=== PATIENT | female | born 1945 | race Caucasian/White ===

== ENCOUNTER → 2018-08-18 | Outpatient (CLI) | payer MEDICARE ==
[~2018-08-18] MED LIST: BETH10TA
== END ==
LOC: CARD 14:51
PROVIDERS: ATTEND Internal Medicine Interventional Cardiology
DX: I10 Essential (primary) hypertension (principal); R07.9 Chest pain, unspecified; I45.10 Unspecified right bundle-branch block
CPT/HCPCS: 93017

== ENCOUNTER → 2018-08-25 | Outpatient (CLI) | payer MEDICARE | LOC: CARD 09:18 | PROVIDERS: ATTEND Internal Medicine Interventional Cardiology | DX: R07.9 Chest pain, unspecified (principal); E78.5 Hyperlipidemia, unspecified; I10 Essential (primary) hypertension | CPT/HCPCS: 93306 ==

== ENCOUNTER 2019-04-07 18:03 | Emergency (ER) | payer MEDICARE ==
[~2019-04-07] VITALS: Ht 167 cm; Wt 69.0 kg
[2019-04-07] MEDS: BSS 15 ML IR ONE ×2 (18:20→18:34)
[2019-04-07] MEDS ORDERED: TETRACAINE 0.5% OPHTH SOLN 4 ML BTL (SINGLE DOSE ONLY) OU ONE (18:30)
[2019-04-07] MEDS ORDERED: FLUORESCEIN (FLUOR-I-STRIPS) 1 MG STRP OU ONE (18:30)
[2019-04-07] MEDS ORDERED: AMLO10TA7 PO (18:43)
[2019-04-07] MEDS ORDERED: CIPR-225 PO (18:43)
[2019-04-07] MEDS ORDERED: PHEN-483 PO (18:43)
[2019-04-07] MEDS ORDERED: NF-ESOM40C PO (18:43)
[2019-04-07] MEDS ORDERED: TETANUS,DIPTH,PERTUSS P/F (BOOSTRIX) 0.5 ML VIAL IM ONE (18:45)
[2019-04-07] MEDS ORDERED: CIPR2.5D2 OP (18:45)
[2019-04-07] MEDS ORDERED: ACHD5005 PO (18:45)
--- NOTE | 2019-04-07 18:45 | ED EENT ---
History of Present Illness General Chief Complaint: Eye Problems Stated Complaint: SCRATCHED R EYE WITH SCISSORS Nursing Triage Note: PT AMBULATED TO ROOM 3 PT STATES SCRATCHED R EYE W SCISSORS APPROX 30 MIN PRIOR TO ARRIVAL. PT STATES HURTS WHEN BLINKS RATES DISCOMFORT 6/10. PT HAS BLURRED VISION IN R EYE Source: patient History of Present Illness Date Seen by Provider: Apr 07, 2019 Time Seen by Provider: 18:25 Initial Comments PT ARRIVES VIA POV FROM HOME C/O INJURY TO RIGHT EYE--OCCURRED 30 MINUTES PRIOR TO ARRIVAL STATES SHE WAS TRIMMING HER BANGS, AND ACCIDENTALLY POKED HERSELF IN THE RIGHT EYE WITH THE SCISSORS C/O BLURRY VISION IN RIGHT EYE C/O PAIN EVERY TIME SHE BLINKS PT NORMALLY WEARS GLASSES NO PRIOR INJURY OR OTHER PROBLEMS WITH EYE LAST TETANUS SHOT IS UNKNOWN PCP: DR. REYES MANAGER CODING: DR. CASTELLANOS Allergies and Home Medications Allergies Coded Allergies: Sulfa (Sulfonamide Antibiotics) (Verified Allergy, Unknown, 12/08/15) Home Medications Amlodipine Besylate 10 Mg Tablet, Unknown Dose PO DAILY, (Reported) Ciprofloxacin HCl 2.5 Ml Drops, 2.5 ML OP UD 2 DROPS TO AFFECTED EYE EVERY 2 HOURS WHILE AWAKE FOR FIRST 2 DAYS, THEN Q 4 HOURS WHILE AWAKE FOR A TOTAL OF 7 DAYS Prescribed by: SYL MARTINEZ on 04/07/191844 Hydrocodone Bit/Acetaminophen 1 Tab Tab, 1 EACH PO Q4H PRN for PAIN-MODERATE Prescribed by: SYL MARTINEZ on 04/07/191844 Patient Home Medication List Home Medication List Reviewed: Yes Review of Systems Review of Systems Constitutional: no symptoms reported Eyes: See HPI Other CURRENTLY ON ANTIBIOTIC, CIPRO, FOR UTI Past Hbemtjc-Fvasag-Bimtyp Hx Patient Social History Alcohol Use: Occasionally Uses Recreational Drug Use: No Smoking Status: Never a Smoker Recent Foreign Travel: No Contact w/Someone Who Travel: No Recent Infectious Disease Expo: No Recent Hopitalizations: No Immunizations Up To Date Tetanus Booster (TDap): Unknown Seasonal Allergies Seasonal Allergies: Yes Past Medical History Tonsillectomy, Tubal Ligation Respiratory: No Cardiac: Yes Hypertension Neurological: No Reproductive Disorders: No Genitourinary: Yes Bladder Infection Gastrointestinal: No Musculoskeletal: No Endocrine: No HEENT: Yes (GLASSES) Cancer: No Psychosocial: No Physical Exam Vital Signs Vital Signs - First Documented 04/07/19 18:15 Temp 36.1 Pulse 85 Resp 18 B/P (MAP) 151/99 (116) Pulse Ox 96 Height, Weight, BMI Height: 5'6" Weight: 166lbs. oz. 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, no motor/sensory deficits, alert, normal mood/affect, oriented x 3 Skin: normal color, warm/dry Procedures/Interventions Eye : Location: right eye Anesthesia (gtts): Tetracaine Progress/Procedure Conclusion TETRACAINE +FLUORESCEIN INSTILLED IN RIGHT EYE + DYE UPTAKE IN UPSIDE DOWN V-SHAPE TO RIGHT CENTER OF CORNEA GLOBE IS INTACT Progress/Results/Core Measures Results/Orders My Orders Orders - SYL MARTINEZ DO Tetracaine 0.5% Ophth Ana Sdv (Tetracai (04/07/19 18:30) Fluorescein Strips (Geeuo-Y-Qlgjfr) (04/07/19 18:30) Balanced Salt Irrigation Soln (Bss Irrig (04/07/19 18:30) Dipht,Pertuss(Acell),Tet Adult (Boostrix (04/07/19 18:45) Medications Given in ED Current Medications Medications Dose Ordered Sig/Samm Route Start Time Stop Time Status Last Admin Dose Admin Balanced Salt Solution 15 ml ONCE ONCE IR 04/07/19 18:30 04/07/19 18:31 DC 04/07/19 18:34 15 ML Fluorescein Sodium 1 mg ONCE ONCE OU 04/07/19 18:30 04/07/19 18:31 DC 04/07/19 18:34 1 MG Tetracaine HCl 4 ml ONCE ONCE OU 04/07/19 18:30 04/07/19 18:31 DC 04/07/19 18:34 4 ML Vital Signs/I&O 04/07/19 18:15 Temp 36.1 Pulse 85 Resp 18 B/P (MAP) 151/99 (116) Pulse Ox 96 Blood Pressure Mean: 116 Departure Impression Primary Impression: Corneal abrasion Additional Impression: Lzqpbcdjhb-maelaqcgu-xmbwxje (DPT) vaccination administered at current visit Disposition: 01 HOME, SELF-CARE Condition: Stable Departure-Patient Inst. Referrals: REDDY REYES DO (PCP/Family) Primary Care Physician Patient Instructions: Corneal Abrasion (DC), Diphtheria and Tetanus Toxoids, and Acellular Pertussis Vaccine Add. Discharge Instructions: DO NOT RUB EYE TYLENOL AND MOTRIN NEEDED FOR PAIN USE EYE DROPS PRESCRIBED RETURN TO ER TOMORROW TO RECHECK YOUR EYE FOLLOW UP WITH YOUR EYE DR ON WEDNESDAY All discharge instructions reviewed with patient and/or family. Voiced understanding. Scripts Hydrocodone Bit/Acetaminophen (Hydrocodone/Acetaminophen 5/325mg Tablet) 1 Tab Tab 1 EACH PO Q4H PRN for PAIN-MODERATE MDD 10 for 3 Days, #10 TAB Prov: SYL MARTINEZ DO 04/07/19 Ciprofloxacin HCl (Ciprofloxacin HCl) 2.5 Ml Drops 2.5 ML OP UD for 7 Days, #1 DROPS 2 DROPS TO AFFECTED EYE EVERY 2 HOURS WHILE AWAKE FOR FIRST 2 DAYS, THEN Q 4 HOURS WHILE AWAKE FOR A TOTAL OF 7 DAYS Prov: SYL MARTINEZ DO 04/07/19 Images Eye 1 - Abrasion, Dye uptake (fluorescein) 2 - Abrasion, Dye uptake (fluorescein) SYL MARTINEZ DO Apr 07, 2019 18:45
[2019-04-07 18:52] VITALS: BP 151/99
== END 2019-04-07 18:52 | disposition home or self-care (01) ==
LOC: EDUNIT# 18:03 → ER 18:04
DX: S05.01XA Injury of conjunctiva and corneal abrasion without foreign body, right eye, initial encounter (principal); I10 Essential (primary) hypertension; Z23 Encounter for immunization; Z88.2 Allergy status to sulfonamides; Z90.89 Acquired absence of other organs; Z98.51 Tubal ligation status; W27.2XXA Contact with scissors, initial encounter
CPT/HCPCS: 90471; 90715; 99284

== ENCOUNTER 2019-04-08 11:26 | Emergency (ER) | payer MEDICARE ==
[~2019-04-08] VITALS: Ht 167 cm; Wt 69.0 kg
[~2019-04-08 11:26] MED LIST changes: +ACHD5005 PO; +AMLO10TA7 PO; +CIPR-225 PO; +CIPR2.5D2 OP; +NF-ESOM40C PO; +PHEN-483 PO
[2019-04-08 12:08] VITALS: BP 149/97
--- NOTE | 2019-04-08 12:13 | ED Suture Removal/Wound Check ---
Suture/Wound Re-check Suture Removal/Wound Recheck : Progress Patient presented yesterday for having accidentally stabbed her lateral left cornea with a pair of scissors. At the time she had a corneal V shape tear. Today her pain is less the blurriness is gone out of her vision and she sees much better back to baseline. General Appearance: WD/WN, no apparent distress Skin Exam: normal color, warm/dry Physical Exam Vital Signs Vital Signs - First Documented 04/08/19 11:52 Temp 36.4 Pulse 78 Resp 17 B/P (MAP) 149/97 Pulse Ox 100 O2 Delivery Room Air Capillary Refill : General Appearance: WD/WN, no apparent distress HEENT: PERRL/EOMI, other (faint right lateral ecchymoses of the cornea without erythema injection or hemorrhage. 20/25 corrected bilateral and ipsilateral eye) Cardiovascular: normal peripheral pulses, regular rate, rhythm Departure Impression Primary Impression: Corneal abrasion Qualified Codes: S05.01XD - Injury of conjunctiva and corneal abrasion without foreign body, right eye, subsequent encounter Disposition: 01 HOME, SELF-CARE Condition: Improved Departure-Patient Inst. Decision time for Depature: 12:07 Referrals: REDDY REYES DO (PCP) Primary Care Physician Patient Instructions: Corneal Abrasion (DC) Add. Discharge Instructions: Set up a follow-up appointment with Dr. Mckenzie, Optometry. All discharge instructions reviewed with patient and/or family. Voiced understanding. THELMA SANCHEZ Apr 08, 2019 12:13
== END 2019-04-08 12:09 | disposition home or self-care (01) ==
LOC: EDUNIT# 11:26 → ER 11:27
DX: S05.01XD Injury of conjunctiva and corneal abrasion without foreign body, right eye, subsequent encounter (principal); W27.2XXD Contact with scissors, subsequent encounter

== ENCOUNTER 2021-07-01 07:52 | Emergency (ER) | payer MEDICARE ==
[~2021-07-01] VITALS: Ht 167.7 cm; Wt 77.1 kg
[~2021-07-01 07:52] MED LIST changes: +AMLO-251 PO; -AMLO10TA7 PO; -CIPR2.5D2 OP; +CIPR2.5D3 OP
[2021-07-01 07:54] VITALS: BP 143/80
[2021-07-01 08:21] LABS: BASOPHILS # (AUTO) 0.1 10^3/uL (0.0-0.1); BASOPHILS % (AUTO) 0 % (0-10); EOSINOPHILS # (AUTO) 0.2 10^3/uL (0.0-0.3); EOSINOPHILS % (AUTO) 2 % (0-10); HEMATOCRIT 42 % (35-52); HEMOGLOBIN 13.6 g/dL (11.5-16.0); LYMPHOCYTES # (AUTO) 1.8 10^3/uL (1.0-4.0); LYMPHOCYTES % (AUTO) 16 % (12-44); MEAN CORPUSCULAR HEMOGLOBIN 30 pg (25-34); MEAN CORPUSCULAR HGB CONC 33 g/dL (32-36); MEAN CORPUSCULAR VOLUME 91 fL (80-99); MEAN PLATELET VOLUME 9.9 fL (9.0-12.2); MONOCYTES # (AUTO) 0.9 10^3/uL (0.0-1.0); MONOCYTES % (AUTO) 8 % (0-12); NEUTROPHILS # (AUTO) 8.4 10^3/uL (1.8-7.8); NEUTROPHILS % (AUTO) 74 % (42-75); PLATELET COUNT 377 10^3/uL (130-400); WHITE BLOOD COUNT 11.4 10^3/uL (4.3-11.0)
[2021-07-01 08:27] LABS: ALBUMIN 4.4 GM/DL (3.2-4.5); POTASSIUM 3.9 MMOL/L (3.6-5.0)
[2021-07-01 08:30] LABS: INR 0.9 (0.8-1.4); PROTHROMBIN TIME PATIENT 12.3 SEC (12.2-14.7)
[2021-07-01] MEDS ORDERED: ASPIRIN 81 MG CHEW (CHILDREN'S ASA) PO ONE (08:30)
[2021-07-01 08:31] LABS: BILIRUBIN,TOTAL 0.6 MG/DL (0.1-1.0)
[2021-07-01 08:33] LABS: CREATININE SERUM 0.76 MG/DL (0.60-1.30)
[2021-07-01 08:36] LABS: MAGNESIUM 1.6 MG/DL (1.6-2.4)
--- NOTE | 2021-07-01 09:31 | Diagnostic Imaging Report ---
Indication: Chest pain Frontal chest obtained at 0931 a.m. There is no prior study for comparison Heart and mediastinal silhouette are normal in appearance. There is no pneumothorax or pleural fluid. There is some vague infiltrate in the right perihilar region, suspect early pneumonia. There is hyperinflation compatible with COPD. IMPRESSION: Hyperinflation compatible with COPD. There is some vague infiltrate in the right perihilar region which may represent early pneumonia. Follow-up is recommended. Dictated by: Dictated on workstation # [id number]
--- NOTE | 2021-07-01 11:34 | ED Chest Pain ---
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 PT REPORTS PAIN INFERIOR TO AXILARY. PT STATES THAT PAIN WILL LAST FOR A FEW SECONDS AND THEN STOP. Source: patient Exam Limitations: no limitations History of Present Illness Date Seen by Provider: Jul 01, 2021 Time Seen by Provider: 08:14 Initial Comments This 76-year-old woman presents to the emergency room with chest pain that started about 2 hours prior to arrival to the ER. She was in bed when the pain started. She describes it as a waxing and waning or intermittent left lateral chest pain. It is not affected by movement, deep breathing, or exertion. She has had episodes of GERD in the past but states this is a different sensation. She reports her pain varies from 2-5 over 10. She denies any associated symptoms such as nausea, lightheadedness, cough, shortness of breath, etc. She has been experiencing diaphoresis at night for over a year without explanation. She admits to drinking 2-3 beers or glasses of wine every night. Allergies and Home Medications Allergies Coded Allergies: Sulfa (Sulfonamide Antibiotics) (Verified Allergy, Unknown, 12/08/15) Patient Home Medication List Home Medication List Reviewed: Yes Amlodipine Besylate (Amlodipine Besylate) 10 Mg Tablet, Unknown Dose PO DAILY, (Reported) Entered as Reported by: JACINTO SAENZ on 04/07/191842 Ciprofloxacin HCl (Cipro) 500 Mg Tablet, Unknown Dose PO, (Reported) Entered as Reported by: JACINTO SAENZ on 04/07/191842 Ciprofloxacin HCl (Ciprofloxacin HCl) 2.5 Ml Drops, 2.5 ML OP UD Prescribed by: SYL MARTINEZ on 04/07/191844 Esomeprazole Magnesium (Nexium) 40 Mg Cap, Unknown Dose PO, (Reported) Entered as Reported by: JACINTO SAENZ on 04/07/191842 Hydrocodone Bit/Acetaminophen (Lortab 5 Mg Tablet) 1 Tab Tab, 1 EACH PO Q4H PRN for PAIN-MODERATE Prescribed by: SYL MARTINEZ on 04/07/191844 Phentermine HCl (Phentermine HCl) 37.5 Mg Capsule, Unknown Dose PO, (Reported) Entered as Reported by: JACINTO SAENZ on 04/07/191842 Review of Systems Review of Systems Constitutional: see HPI EENTM: No Symptoms Reported Respiratory: No Symptoms Reported Cardiovascular: See HPI Gastrointestinal: No Symptoms Reported Genitourinary: No Symptoms Reported Musculoskeletal: no symptoms reported Skin: no symptoms reported Psychiatric/Neurological: No Symptoms Reported Endocrine: No Symptoms Reported Hematologic/Lymphatic: No Symptoms Reported Past Jifmsna-Sznaul-Equvzw Hx Patient Social History Tobacco Use?: No Smoking Status: Former Smoker Smokeless Tobacco Frequency: Never a User Use of E-Cig and/or Vaping dev: No Use of E-Cig and/or Vaping Jean-Pierre: Never a User Substance use?: No Alcohol Use?: Yes Alcohol Frequency: Daily Pt feels they are or have been: No Immunizations Up To Date Tetanus Booster (TDap): Unknown First/Initial COVID19 Vaccinat: UNKNOWN DATE Second COVID19 Vaccination Jed: UNKNOWN DATE COVID19 Vaccine Audio Visual Production Specialist: FatsomaOlman Seasonal Allergies Seasonal Allergies: Yes Past Medical History Surgeries: Yes (Rhinoplasty) Tonsillectomy, Tubal Ligation Respiratory: Yes (COVID-15 June 2020) Cardiac: Yes High Cholesterol, Hypertension Neurological: No Reproductive Disorders: No Genitourinary: Yes Bladder Infection Gastrointestinal: No Musculoskeletal: No Endocrine: No HEENT: Yes (GLASSES) Cancer: No Psychosocial: No Physical Exam Vital Signs Vital Signs - First Documented 07/01/21 07:54 Temp 37.3 Pulse 89 Resp 17 B/P (MAP) 143/80 (101) O2 Delivery Room Air Capillary Refill : Less Than 3 Seconds Height, Weight, BMI Height: 5'6" Weight: 166lbs. oz. 75.968622pj; 27.00 BMI Method:Actual General Appearance: No Apparent Distress, WD/WN, Thin HEENT: PERRL/EOMI, Normal ENT Inspection Neck: Normal Inspection; No JVD Respiratory: Chest Non Tender, Lungs Clear, Normal Breath Sounds, No Accessory Muscle Use, No Respiratory Distress Cardiovascular: Regular Rate, Rhythm, No Edema, No Murmur Gastrointestinal: Normal Bowel Sounds, Non Tender, Soft Extremity: Normal Inspection, Non Tender, No Calf Tenderness, No Pedal Edema Neurologic/Psychiatric: Alert, Oriented x3, No Motor/Sensory Deficits, Normal Mood/Affect, die maintenance II-XII Norm as Tested Skin: Normal Color, Warm/Dry; No Rash Progress/Results/Core Measures Results/Orders Lab Results Laboratory Tests Test 07/01/21 08:00 07/01/21 10:09 Range/Units White Blood Count 11.4 H 4.3-11.0 10^3/uL Red Blood Count 4.55 3.80-5.11 10^6/uL Hemoglobin 13.6 11.5-16.0 g/dL Hematocrit 42 35-52 % Mean Corpuscular Volume 91 80-99 fL Mean Corpuscular Hemoglobin 30 25-34 pg Mean Corpuscular Hemoglobin Concent 33 32-36 g/dL Red Cell Distribution Width 13.0 10.0-14.5 % Platelet Count 377 130-400 10^3/uL Mean Platelet Volume 9.9 9.0-12.2 fL Immature Granulocyte % (Auto) 0 % Neutrophils (%) (Auto) 74 42-75 % Lymphocytes (%) (Auto) 16 12-44 % Monocytes (%) (Auto) 8 0-12 % Eosinophils (%) (Auto) 2 0-10 % Basophils (%) (Auto) 0 0-10 % Neutrophils # (Auto) 8.4 H 1.8-7.8 10^3/uL Lymphocytes # (Auto) 1.8 1.0-4.0 10^3/uL Monocytes # (Auto) 0.9 0.0-1.0 10^3/uL Eosinophils # (Auto) 0.2 0.0-0.3 10^3/uL Basophils # (Auto) 0.1 0.0-0.1 10^3/uL Immature Granulocyte # (Auto) 0.0 0.0-0.1 10^3/uL Prothrombin Time 12.3 12.2-14.7 SEC INR Comment 0.9 0.8-1.4 Activated Partial Thromboplast Time 28 24-35 SEC Sodium Level 138 135-145 MMOL/L Potassium Level 3.9 3.6-5.0 MMOL/L Chloride Level 102 98-107 MMOL/L Carbon Dioxide Level 26 21-32 MMOL/L Anion Gap 10 5-14 MMOL/L Blood Urea Nitrogen 14 7-18 MG/DL Creatinine 0.76 0.60-1.30 MG/DL Estimat Glomerular Filtration Rate 74 BUN/Creatinine Ratio 18 Glucose Level 122 H 70-105 MG/DL Calcium Level 9.0 8.5-10.1 MG/DL Corrected Calcium 8.7 8.5-10.1 MG/DL Magnesium Level 1.6 1.6-2.4 MG/DL Total Bilirubin 0.6 0.1-1.0 MG/DL Aspartate Amino Transf (AST/SGOT) 24 5-34 U/L Alanine Aminotransferase (ALT/SGPT) 20 0-55 U/L Alkaline Phosphatase 69 40-136 U/L Myoglobin 62.8 10.0-92.0 NG/ML Troponin I < 0.028 < 0.028 <0.028 NG/ML Total Protein 8.0 6.4-8.2 GM/DL Albumin 4.4 3.2-4.5 GM/DL Serum Alcohol < 10 <10 MG/DL My Orders Orders - TACHO MARTÍNEZ MD Cbc With Automated Diff (07/01/21 08:14) Magnesium (07/01/21 08:14) Chest 1 View, Ap/Pa Only (07/01/21 08:14) Ekg Tracing (07/01/21 08:14) Comprehensive Metabolic Panel (07/01/21 08:14) Myoglobin Serum (07/01/21 08:14) Protime With Inr (07/01/21 08:14) Partial Thromboplastin Time (07/01/21 08:14) O2 (07/01/21 08:14) Monitor-Rhythm Ecg Trace Only (07/01/21 08:14) Ed Iv/Invasive Line Start (07/01/21 08:14) Troponin I [place] (07/01/21 08:14) Aspirin Chewable Tablet (Baby Aspirin Ch (07/01/21 08:30) Alcohol (07/01/21 08:29) Troponin I Kj (07/01/21 10:00) Medications Given in ED Current Medications Medications Dose Ordered Sig/Samm Route Start Time Stop Time Status Last Admin Dose Admin Aspirin 324 mg ONCE ONCE PO 07/01/21 08:30 07/01/21 08:31 DC 07/01/21 09:37 324 MG Vital Signs/I&O 07/01/21 07:54 Temp 37.3 Pulse 89 Resp 17 B/P (MAP) 143/80 (101) O2 Delivery Room Air Blood Pressure Mean: 101 Progress Progress Note : Progress Note She was given aspirin 324 mg. Chest pain resolved without interventions. Nitroglycerin was not given due to her lower normotensive blood pressure. Work- up was unremarkable. Repeat troponin after 2 hours was still negative. Patient was advised that cardiac work-up cannot be complete in the emergency department and follow-up for further evaluation is necessary. She expressed understanding. No acute abnormalities were appreciated on initial read of chest x-ray. However, radiologist interpretation noted some infiltrate in the right upper lung. This is not necessarily consistent with the patient's symptoms. However, as a precaution she is being prescribed a azithromycin and being advised to follow-up with her primary care provider for repeat x-ray. This information was communicated to the patient via voicemail. Initial ECG Impression Date: Jul 01, 2021 Initial ECG Impression Time: 07:49 Initial ECG Rate: 90 Initial ECG Rhythm: Normal Sinus Comment Sinus rhythm with right bundle branch block. No ST elevation or depression. No axis deviation. Diagnostic Imaging Diagonstic Imaging: Xray Plain Films/CT/US/NM/MRI: chest Comments NAME: MARKELL FERNÁNDEZ [facility] REC#: [id number] PT STATUS: DEP ER : 1945 PHYSICIAN: TACHO MARTÍNEZ MD ADMIT DATE: 07/01/21/ER Signed Date of Exam:07/01/21 CHEST 1 VIEW, AP/PA ONLY Indication: Chest pain Frontal chest obtained at 0931 a.m. There is no prior study for comparison Heart and mediastinal silhouette are normal in appearance. There is no pneumothorax or pleural fluid. There is some vague infiltrate in the right perihilar region, suspect early pneumonia. There is hyperinflation compatible with COPD. IMPRESSION: Hyperinflation compatible with COPD. There is some vague infiltrate in the right perihilar region which may represent early pneumonia. Follow-up is recommended. Dictated by: Dictated on workstation # [id number] Dict: 07/01/21927 Trans: 07/01/211637 B[place]NER [id number] Interpreted by: ESTELITA RAYMUNDO MD Electronically signed by: ESTELITA RAYMUNDO MD 07/01/218 Departure Impression Primary Impression: Atypical chest pain Additional Impression: Right upper lobe pulmonary infiltrate Disposition: HOME, SELF-CARE Condition: Improved Departure-Patient Inst. Decision time for Depature: 11:32 Referrals: REDDY REYES DO (PCP/Family) Primary Care Physician Patient Instructions: Chest Pain Add. Discharge Instructions: Although no significant abnormalities were detected in the emergency room during your assessment today, it is important that you follow-up with your primary care provider and your refuge manager to complete your cardiac evaluation. Please call your primary care provider and your refuge manager today to arrange for follow-up. Continue taking your usual medications. Also take aspirin 81 mg daily. Call with questions or concerns. Return to the emergency room if you have return or recurrent episodes of chest pain or other concerning symptoms such as shortness of breath, cough, fever, lightheadedness, etc. The following information was provided to the patient via voicemail after departure after review of radiologist interpretation of x-ray: There were markings in the right upper lung on your chest x-ray as interpreted by the radi ologist. As a precaution you are being prescribed a azithromycin to treat possible pneumonia. Please follow-up with your primary care provider for a repeat chest x-ray after you complete antibiotics. All discharge instructions reviewed with patient and/or family. Voiced understanding. Scripts Azithromycin (Azithromycin) 250 Mg Tablet 250 MG PO UD, #6 TAB TAKE 2 TABLETS ON DAY ONE THEN TAKE 1 TABLET DAILY FOR FOUR MORE DAYS Prov: TACHO MARTÍNEZ MD 07/01/21 Copy Copies To 1: REDDY REYES JOSHUA T MD Jul 01, 2021 11:34
[2021-07-01] MEDS ORDERED: AZIT250T12 PO (19:25)
== END 2021-07-01 11:40 | disposition home or self-care (01) ==
LOC: EDUNIT# 07:52 → ER 07:54
DX: R07.89 Other chest pain (principal); R91.8 Other nonspecific abnormal finding of lung field; I10 Essential (primary) hypertension; Z87.891 Personal history of nicotine dependence
CPT/HCPCS: 71045; 80053; 83735; 83874; 84484; 85025; 85610; 85730; 93005; 93041; 99284; G0480; 36415; 80320

== ENCOUNTER 2022-07-31 11:55 | Emergency (ER) | payer MEDICARE ==
[~2022-07-31] VITALS: Ht 168 cm; Wt 79.0 kg
[~2022-07-31 11:55] MED LIST changes: +AZIT250T12 PO
[2022-07-31 12:31] LABS: BASOPHILS # (AUTO) 0.1 10^3/uL (0.0-0.1); BASOPHILS % (AUTO) 1 % (0-10); EOSINOPHILS # (AUTO) 0.2 10^3/uL (0.0-0.3); EOSINOPHILS % (AUTO) 3 % (0-10); HEMATOCRIT 41 % (35-52); HEMOGLOBIN 13.7 g/dL (11.5-16.0); LYMPHOCYTES # (AUTO) 2.1 10^3/uL (1.0-4.0); LYMPHOCYTES % (AUTO) 30 % (12-44); MEAN CORPUSCULAR HEMOGLOBIN 29 pg (25-34); MEAN CORPUSCULAR HGB CONC 34 g/dL (32-36); MEAN CORPUSCULAR VOLUME 87 fL (80-99); MEAN PLATELET VOLUME 9.9 fL (9.0-12.2); MONOCYTES % (AUTO) 14 % (0-12); NEUTROPHILS # (AUTO) 3.6 10^3/uL (1.8-7.8); NEUTROPHILS % (AUTO) 52 % (42-75); PLATELET COUNT 326 10^3/uL (130-400); WHITE BLOOD COUNT 6.9 10^3/uL (4.3-11.0)
[2022-07-31 12:52] LABS: ALBUMIN 4.2 GM/DL (3.2-4.5); INR 0.9 (0.8-1.4); PROTHROMBIN TIME PATIENT 12.9 SEC (12.2-14.7)
[2022-07-31 12:53] LABS: POTASSIUM 3.5 MMOL/L (3.6-5.0)
[2022-07-31 12:54] LABS: CALCIUM 9.3 MG/DL (8.5-10.1)
[2022-07-31 12:55] LABS: TOTAL PROTEIN 7.7 GM/DL (6.4-8.2)
[2022-07-31 12:57] LABS: BILIRUBIN,TOTAL 0.9 MG/DL (0.1-1.0)
[2022-07-31 12:59] LABS: CREATININE SERUM 0.73 MG/DL (0.60-1.30)
[2022-07-31 13:01] LABS: MAGNESIUM 1.9 MG/DL (1.6-2.4)
--- NOTE | 2022-07-31 13:17 | ED Chest Pain ---
General Chief Complaint: Chest Pain Stated Complaint: CHEST PAINS Nursing Triage Note: Patient ambulatory to ER w c/o chest pain. Patients states pain feels like pressure and she has had this before but never gets a diagnosis. 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 Pain started 1 hr ago and she has not taken anything for pain. Source: patient, old records Exam Limitations: no limitations History of Present Illness Date Seen by Provider: Jul 31, 2022 Time Seen by Provider: 11:57 Initial Comments This is 77-year-old woman presents to the emergency room with complaints of upper abdominal pain that radiated up into the epigastrium and toward the left neck.. Started around 1030 this morning while she was drinking coffee. She denied any alleviating or exacerbating factors. She did experience some blurry vision and lightheadedness but not syncope. She drove herself to the hospital for further evaluation. Symptoms resolved by the time of my evaluation. She had a similar episode for which she was seen in the emergency room 13 months ago. Work-up was unremarkable at that time and she was advised to pursue further cardiac evaluation. Review of her chart notes reveal a stress test performed at this facility in 2018 revealing hypertensive response and low exercise tolerance but no ischemic changes. She has never had angiography. She follows with [facility] cardiology and has an appointment August 20. Her primary care provider is Dr. Reyes. She has a remote history of smoking and drinks 2 to 3 glasses of wine each evening which she has done for a long time. She has history of GERD and takes Nexium daily. Allergies and Home Medications Allergies Coded Allergies: Sulfa (Sulfonamide Antibiotics) (Verified Allergy, Unknown, 12/08/15) Patient Home Medication List Home Medication List Reviewed: Yes Amlodipine Besylate (Amlodipine Besylate) 10 Mg Tablet, Unknown Dose PO DAILY, (Reported) Entered as Reported by: JACINTO SAENZ on 04/07/19 184 Azithromycin (Azithromycin) 250 Mg Tablet, 250 MG PO UD Prescribed by: TACHO THOMAS on 07/01/211924 Ciprofloxacin HCl (Cipro) 500 Mg Tablet, Unknown Dose PO, (Reported) Entered as Reported by: JACINTO SAENZ on 04/07/19 1843 Ciprofloxacin HCl (Ciprofloxacin HCl) 2.5 Ml Drops, 2.5 ML OP UD Prescribed by: SYL MARTINEZ on 04/07/191844 Esomeprazole Magnesium (Nexium) 40 Mg Cap, Unknown Dose PO, (Reported) Entered as Reported by: JACINTO SAENZ on 04/07/191842 Hydrocodone Bit/Acetaminophen (Lortab 5 Mg Tablet) 1 Tab Tab, 1 EACH PO Q4H PRN for PAIN-MODERATE Prescribed by: SYL MARTINEZ on 04/07/191844 Phentermine HCl (Phentermine HCl) 37.5 Mg Capsule, Unknown Dose PO, (Reported) Entered as Reported by: JACINTO SAENZ on 04/07/191842 Review of Systems Review of Systems Constitutional: no symptoms reported EENTM: No Symptoms Reported Respiratory: No Symptoms Reported Cardiovascular: See HPI Gastrointestinal: See HPI Genitourinary: No Symptoms Reported Musculoskeletal: no symptoms reported Skin: no symptoms reported Psychiatric/Neurological: No Symptoms Reported Endocrine: No Symptoms Reported Past Sbmiasb-Qaraxs-Uxyalv Hx Patient Social History Tobacco Use?: No Smoking Status: Former Smoker (Remote smoking history, quit at age 40s) Substance use?: No Alcohol Use?: Yes Alcohol type: Beer, Wine Alcohol Frequency: Daily (2 to 3 glasses) Immunizations Up To Date Tetanus Booster (TDap): Unknown First/Initial COVID19 Vaccinat: UNKNOWN DATE Second COVID19 Vaccination Jed: UNKNOWN DATE COVID19 Vaccine Hand Riveter: Albert Seasonal Allergies Seasonal Allergies: Yes Past Medical History Surgeries: Yes (Rhinoplasty) Tonsillectomy, Tubal Ligation Respiratory: Yes (COVID-15 June 2020) Cardiac: Yes High Cholesterol, Hypertension Neurological: No : No Reproductive Disorders: No Genitourinary: Yes Bladder Infection Gastrointestinal: No Musculoskeletal: Yes Arthritis (Knee) Endocrine: No HEENT: Yes (GLASSES) Cancer: No Psychosocial: No Physical Exam Vital Signs Vital Signs - First Documented 07/31/22 11:55 Temp 36.8 Pulse 82 Resp 24 B/P (MAP) 150/96 (114) Pulse Ox 96 O2 Delivery Room Air Capillary Refill : Less Than 3 Seconds Height, Weight, BMI Height: 5'6" Weight: 166lbs. oz. 75.348531ln; 27.00 BMI Method:Actual General Appearance: No Apparent Distress, WD/WN HEENT: PERRL/EOMI, Normal ENT Inspection Neck: Normal Inspection; No JVD Respiratory: Chest Non Tender, Lungs Clear, Normal Breath Sounds, No Accessory Muscle Use, No Respiratory Distress Cardiovascular: Regular Rate, Rhythm, No Murmur, Other (Trace lower extremity edema) Gastrointestinal: Normal Bowel Sounds, Non Tender, Soft; No Distended Extremity: Non Tender, Swelling (Trace ankle edema) Neurologic/Psychiatric: Alert, Oriented x3, No Motor/Sensory Deficits, Normal Mood/Affect Skin: Normal Color, Warm/Dry Progress/Results/Core Measures Results/Orders Lab Results Laboratory Tests Test 07/31/22 12:15 07/31/22 14:15 07/31/22 17:30 Range/Units White Blood Count 6.9 4.3-11.0 10^3/uL Red Blood Count 4.66 3.80-5.11 10^6/uL Hemoglobin 13.7 11.5-16.0 g/dL Hematocrit 41 35-52 % Mean Corpuscular Volume 87 80-99 fL Mean Corpuscular Hemoglobin 29 25-34 pg Mean Corpuscular Hemoglobin Concent 34 32-36 g/dL Red Cell Distribution Width 13.4 10.0-14.5 % Platelet Count 326 130-400 10^3/uL Mean Platelet Volume 9.9 9.0-12.2 fL Immature Granulocyte % (Auto) 0 % Neutrophils (%) (Auto) 52 42-75 % Lymphocytes (%) (Auto) 30 12-44 % Monocytes (%) (Auto) 14 H 0-12 % Eosinophils (%) (Auto) 3 0-10 % Basophils (%) (Auto) 1 0-10 % Neutrophils # (Auto) 3.6 1.8-7.8 10^3/uL Lymphocytes # (Auto) 2.1 1.0-4.0 10^3/uL Monocytes # (Auto) 1.0 0.0-1.0 10^3/uL Eosinophils # (Auto) 0.2 0.0-0.3 10^3/uL Basophils # (Auto) 0.1 0.0-0.1 10^3/uL Immature Granulocyte # (Auto) 0.0 0.0-0.1 10^3/uL Prothrombin Time 12.9 12.2-14.7 SEC INR Comment 0.9 0.8-1.4 Activated Partial Thromboplast Time 27 24-35 SEC Sodium Level 138 135-145 MMOL/L Potassium Level 3.5 L 3.6-5.0 MMOL/L Chloride Level 103 98-107 MMOL/L Carbon Dioxide Level 23 21-32 MMOL/L Anion Gap 12 5-14 MMOL/L Blood Urea Nitrogen 14 7-18 MG/DL Creatinine 0.73 0.60-1.30 MG/DL Estimat Glomerular Filtration Rate 86 BUN/Creatinine Ratio 19 Glucose Level 110 H 70-105 MG/DL Calcium Level 9.3 8.5-10.1 MG/DL Corrected Calcium 9.1 8.5-10.1 MG/DL Magnesium Level 1.9 1.6-2.4 MG/DL Total Bilirubin 0.9 0.1-1.0 MG/DL Aspartate Amino Transf (AST/SGOT) 21 5-34 U/L Alanine Aminotransferase (ALT/SGPT) 24 0-55 U/L Alkaline Phosphatase 77 40-136 U/L Myoglobin 56.7 10.0-92.0 NG/ML Troponin I < 0.028 < 0.028 < 0.028 <0.028 NG/ML Total Protein 7.7 6.4-8.2 GM/DL Albumin 4.2 3.2-4.5 GM/DL Lipase 8 8-78 U/L Serum Alcohol < 10 <10 MG/DL My Orders Orders - TACHO MARTÍNEZ MD Ekg Tracing (07/31/22 11:57) Cbc With Automated Diff (07/31/22 11:59) Magnesium (07/31/22 11:59) Chest 1 View, Ap/Pa Only (07/31/22 11:59) Comprehensive Metabolic Panel (07/31/22 11:59) Myoglobin Serum (07/31/22 11:59) Protime With Inr (07/31/22 11:59) Partial Thromboplastin Time (07/31/22 11:59) O2 (07/31/22 11:59) Monitor-Rhythm Ecg Trace Only (07/31/22 11:59) Lipid Panel (08/01/22 06:00) Ed Iv/Invasive Line Start (07/31/22 11:59) Troponin I Trigg (07/31/22 11:59) Lipase (07/31/22 12:55) Troponin I Trigg (07/31/22 14:15) Aspirin Chewable Tablet (Baby Aspirin Ch (07/31/22 13:42) Nitroglycerin 0.4 Mg Btl 25's (Nitrostat (07/31/22 13:42) Nitroglycerin 0.4 Mg Btl 25's (Nitrostat (07/31/22 13:45) Aspirin Chewable Tablet (Baby Aspirin Ch (07/31/22 13:45) Ekg Tracing (07/31/22 13:45) Alcohol (07/31/22 14:19) Ondansetron Injection (Zofran Injectio (07/31/22 16:00) Lidocaine 2% Viscous 15 Ml (Xylocaine Vi (07/31/22 16:00) Antacid Suspension (Mylanta Suspension (07/31/22 16:00) Famotidine Tablet (Pepcid Tablet) (07/31/22 16:00) Troponin I Kj (07/31/22 17:30) Medications Given in ED Current Medications Medications Dose Ordered Sig/Samm Route Start Time Stop Time Status Last Admin Dose Admin Al Hydrox/Mg Hydrox/Simethicone 30 ml ONCE ONCE PO 07/31/22 16:00 07/31/22 16:01 DC 07/31/22 16:06 30 ML Aspirin 324 mg ONCE ONCE PO 07/31/22 13:45 07/31/22 13:46 DC 07/31/22 13:49 324 MG Famotidine 20 mg ONCE ONCE PO 07/31/22 16:00 07/31/22 16:01 DC 07/31/22 16:07 20 MG Lidocaine HCl 15 ml ONCE ONCE PO 07/31/22 16:00 07/31/22 16:01 DC 07/31/22 16:07 15 ML Ondansetron HCl 4 mg ONCE ONCE IVP 07/31/22 16:00 07/31/22 16:01 DC 07/31/22 16:07 4 MG Vital Signs/I&O 07/31/22 11:55 Temp 36.8 Pulse 82 Resp 24 B/P (MAP) 150/96 (114) Pulse Ox 96 O2 Delivery Room Air Blood Pressure Mean: 114 Progress Progress Note : Time: 13:21 Progress Note Patient was interviewed and examined shortly after arrival. EKG was obtained and revealed no acute ischemia on my interpretation and comparison with prior. EKG was very similar to prior. Chest pain work-up is being pursued. Patient h as no symptoms as of the time of my assessment. Repeat troponin did will be drawn at 1415. Initial ECG Impression Date: Jul 31, 2022 Initial ECG Impression Time: 12:01 Initial ECG Rate: 81 Initial ECG Rhythm: Normal Sinus Comment Sinus rhythm with no ischemic ST elevation or depression. Right bundle branch block. No axis deviation. Similar to prior from June 2021. EKG : EKG Time: 13:45 Departure Impression Primary Impression: Atypical chest pain Additional Impression: Upper abdominal pain Disposition: HOME, SELF-CARE Condition: Improved Departure-Patient Inst. Decision time for Depature: 18:11 Referrals: CARTER MART MD (PCP) Primary Care Physician REDDY REYES ALI MD [facility] Patient Instructions: Chest Pain Add. Discharge Instructions: Keep your appointment with [facility] cardiology. If you desire to be seen sooner for expedited evaluation, you may schedule an appointment with Dr. Coley by calling his office on Wednesday. His contact information is below. Continue taking aspirin 81 mg up to 325 mg daily. Continue taking Nexium daily. Avoid the following: Eating large meals, eating close to bedtime, caffeine, carbonation, chocolate, citrus fruits and juices, tomato products, mints, tobacco, alcohol, spicy foods, fatty/greasy foods, NSAID medications other than your daily aspirin, and anything else you know irritates your stomach or causes you chest pain. You are encouraged to gradually taper down on your alcohol consumption until you are able to quit completely. Alcohol is a direct irritant to the lining of the stomach and esophagus and may cause pain of the nature you are experiencing. Return to the emergency room if you are having recurrent episodes of chest pain or other acute symptoms such as shortness of breath, lightheadedness, etc. All discharge instructions reviewed with patient and/or family. Voiced understanding. Copy Copies To 1: REDDY REYES DO Copies To 2: DIDI COLEY MD [facility] TACHO MARTÍNEZ MD Jul 31, 2022 13:17
--- NOTE | 2022-07-31 13:24 | Diagnostic Imaging Report ---
INDICATION: Chest pain. COMPARISON: Exam compared to 07/01/2021. FINDINGS: Lungs are clear. No failure, effusion, or pneumothorax. IMPRESSION: No acute-appearing abnormality. Dictated by: Dictated on workstation # [id number]
[2022-07-31] MEDS ORDERED: ASPIRIN 81 MG CHEW (CHILDREN'S ASA) ONE (13:42)
[2022-07-31] MEDS ORDERED: NITROGLYCERIN 0.4 MG SL TABS BTL 25'S SL ONE (13:42)
[2022-07-31] MEDS ORDERED: ASPIRIN 81 MG CHEW (CHILDREN'S ASA) PO ONE (13:45)
[2022-07-31] MEDS ORDERED: NITROGLYCERIN 0.4 MG SL TABS BTL 25'S SL PRN (13:45)
[2022-07-31] MEDS ORDERED: ONDANSETRON 4 MG/2 ML (SDV) Z0FRAN IVP ONE (16:00)
[2022-07-31] MEDS ORDERED: LIDOCAINE 2% VISCOUS 15 ML UDC PO ONE (16:00)
[2022-07-31] MEDS ORDERED: FAMOTIDINE 20 MG (PEPCID) TABLET PO ONE (16:00)
[2022-07-31] MEDS ORDERED: ANTACID SUSP 30 ML UDC (MYLANTA) PO ONE (16:00)
[2022-07-31 18:37] VITALS: BP 128/98
== END 2022-07-31 18:27 | disposition home or self-care (01) ==
LOC: EDUNIT# 11:55 → ER 11:56
DX: R07.89 Other chest pain (principal); R10.10 Upper abdominal pain, unspecified; K21.9 Gastro-esophageal reflux disease without esophagitis; Z87.891 Personal history of nicotine dependence; Z86.16 Personal history of COVID-19; Z79.899 Other long term (current) drug therapy
CPT/HCPCS: 71045; 80053; 83690; 83735; 83874; 84484; 85025; 85610; 85730; 99284; G0480; 36415; 80320; 93005

== ENCOUNTER 2022-08-21 14:18 | Outpatient (RCR) | payer MEDICARE | END 2022-08-25 | disposition home or self-care (01) | PROVIDERS: ATTEND Orthopaedic Surgery | DX: M25.561 Pain in right knee (principal); M25.562 Pain in left knee ==

== ENCOUNTER 2022-09-03 14:57 | Outpatient (RCR) | payer MEDICARE | END 2022-09-22 08:59 | disposition home or self-care (01) | PROVIDERS: ATTEND Orthopaedic Surgery | DX: M25.561 Pain in right knee (principal); M25.562 Pain in left knee; I10 Essential (primary) hypertension ==